=== PATIENT | female | born 1960 | race Caucasian/White ===

== ENCOUNTER 2017-08-21 15:03 | Emergency (ER) | payer OTHER, MEDICAID ==
--- NOTE | 2017-08-21 16:01 | EDM.PDOC ---
ED HPI GENERAL MEDICAL PROBLEM - General Chief Complaint: Chemical Exposure Stated Complaint: EXPOSED TO CARBON DIOXIDE Time Seen by Provider: 08/21/17 15:58 Source of Information: Reports: Patient, Family (spouse) History Limitations: Reports: No Limitations - History of Present Illness INITIAL COMMENTS - FREE TEXT/NARRATIVE: 56-year-old female presents the ED after being exposed to carbon monoxide in her home. History is that they moved into a mobile within the last week. It is supplied by natural gas. Going to supervisor seaming a natural gas close dryer last night smelt increased gas within the home. M.D. you came to check it out today and identified that there was a significant gas leak in the house and advised to remove herself from the home. She is sick with a severe headache dry burning eyes atypical chest pains as sharp and stabbing but a sense of dyspnea as well and she did have nausea and vomiting 1. She left the home proximally an hour ago. Her daughter also who is with her is quite lethargic and not quite himself either. He has not vomited. identified that there appears to be a crack in a plastic line that runs to the dryer that appears to be the source of the gas leak. Is being fixed at this time. [facility] is supposed to do a walk through and retest before she reenters the home. Also fire department was involved with current monoxide monitoring. Onset: Today (Patient states she's felt like she's had the flu since they moved into this mobile home a week ago. Much more symptomatic however this morning when the closed our was ran.) Onset Date: 08/21/17 Duration: Hour(s): Location: Reports: Other (Headache burning eyes shortness of breath nausea and vomiting) Severity: Moderate Improves with: Reports: None Worsens with: Reports: Other (Staying in the home) Context: Reports: Other (Suspect carbon monoxide exposure and toxicity.). Denies: Activity, Exercise ( made things worse.), Lifting, Sick Contact Associated Symptoms: Reports: Chest Pain, Headaches, Malaise, Nausea/Vomiting, Shortness of Breath. Denies: Confusion, Cough, cough w sputum, Diaphoresis, Fever/Chills, Loss of Appetite, Seizure, Syncope Treatments TAB MACHINE OPERATOR: Reports: Other (see below) (Nausea and vomiting 1. None.) Chest Pain Score (Numeric/FACES): 6 - Related Data Allergies Allergy/AdvReac Type Severity Reaction Status Date / Time Penicillins Allergy Seizure Verified 08/21/17 15:10 Past Medical History Cardiovascular History: Reports: High Cholesterol Musculoskeletal History: Reports: Back Pain, Chronic, RA, Other (See Below) Other Musculoskeletal History: bulging discs in her back Psychiatric History: Reports: Anxiety, Depression, PTSD Social & Family History - Tobacco Use Smoking Status *Q: Never Smoker - Recreational Drug Use Recreational Drug Use: Yes Drug Use in Last 12 Months: Yes Recreational Drug Type: Reports: Marijuana/Hashish - Living Situation & Occupation Living situation: Reports: Occupation: Unemployed ED ROS GENERAL - Review of Systems Review Of Systems: See Below Constitutional: Reports: Malaise, Weakness, Fatigue, Decreased Appetite. Denies : Fever, Chills HEENT: Reports: No Symptoms Respiratory: Reports: Shortness of Breath, Cough. Denies: Wheezing, Pleuritic Chest Pain, Sputum, Hemoptysis (Nonproductive), Other Cardiovascular: Reports: Chest Pain, Dyspnea on Exertion, Lightheadedness. Denies: Blood Pressure Problem, Claudication, Edema, Orthopnea, Palpitations, PND, Syncope Endocrine: Reports: Fatigue GI/Abdominal: Reports: Nausea, Vomiting (Vomited once this morning.). Denies: Abdominal Pain : Reports: No Symptoms Musculoskeletal: Reports: No Symptoms Skin: Reports: No Symptoms Neurological: Reports: No Symptoms Psychiatric: Reports: No Symptoms Hematologic/Lymphatic: Reports: No Symptoms Immunologic: Reports: No Symptoms ED EXAM, BURN/SMOKE INHALATION - Physical Exam Exam: See Below Exam Limited By: No Limitations General Appearance: Alert, WD/WN, Anxious, Moderate Distress, Other (Appears rather pallid.) Eye Exam: Bilateral Eye: Normal Inspection Mouth/Throat: No Symptoms Reported, Other Head: No Symptoms, Atraumatic Neck: No Symptoms. No: Trachea Midline, Lymphadenophy (R), Lymphadenopy (L) Respiratory: No Respiratory Distress, Lungs Clear, Normal Breath Sounds, Chest Non-Tender Cardiovascular: Normal Peripheral Pulses, Regular Rate, Rhythm, No Edema, No Gallop Peripheral Pulses: 0: Popliteal (L) GI/Abdominal: Normal Bowel Sounds, Soft, Non-Tender, No Organomegaly, No Abnormal Bruit, No Mass Extremities: Normal Inspection, Normal Range of Motion, Non-Tender, No Pedal Edema Neurological: Alert, Oriented, CN II-XII Intact, Normal Cognition, No Motor/ Sensory Deficits Psychiatric: Normal Affect, Anxious Skin Exam: Warm, Dry, Intact, Normal Color, Other (Has an eczematous rash anterior aspect of her tib-fib's. She's been scratching this excessively with multiple excoriations evident.) EKG INTERPRETATION EKG Date: 08/21/17 Time: 15:23 Rhythm: NSR Rate (Beats/Min): 76 [place]: Normal P-Wave: Present QRS: Other (Mildly decreased voltage limb leads) ST-T: Normal QT: Prolonged (Mildly prolonged) Course - Vital Signs Last Recorded V/S: Last Vital Signs Temp 35.8 C 08/21/17 15:10 Pulse 77 08/21/17 15:10 Resp 18 08/21/17 15:10 BP 137/76 08/21/17 15:10 Pulse Ox 98 08/21/17 15:10 - Orders/Labs/Meds Orders: Active Orders 24 hr Category Date Time Status EKG 12 Lead [EKG Documentation Completion] [RC] STAT Care 08/21/17 16:24 Active Chest 1V Frontal [CR] Stat Exams 08/21/17 15:58 Taken Labs: Laboratory Tests 08/21/17 08/21/17 08/21/17 Range/Units 15:27 16:18 16:18 WBC 4.38 (3.98-10.04) K/mm3 RBC 4.62 (3.98-5.22) M/mm3 Hgb 13.8 (11.2-15.7) gm/L Hct 41.4 (34.1-44.9) % MCV 89.6 (79.4-94.8) fl MCH 29.9 (25.6-32.2) pg MCHC 33.3 (32.2-35.5) g/dl RDW Std Deviation 41.2 (36.4-46.3) fL Plt Count 216 (182-369) K/mm3 MPV 9.4 (9.4-12.3) fl Neutrophils % (Manual) 60 (40-60) % Band Neutrophils % 0 (0-10) % Lymphocytes % (Manual) 28 (20-40) % Atypical Lymphs % 0 % Monocytes % (Manual) 8 (2-10) % Eosinophils % (Manual) 3 (0.7-5.8) % Basophils % (Manual) 1 (0.1-1.2) Platelet Estimate Adequate Plt Morphology Comment Normal RBC Morph Comment Normal Puncture Site Lt radial ABG pH 7.43 (7.35-7.45) ABG pCO2 40.2 (35.0-45.0) mmHg ABG pO2 309.0 H* (80.0-100.0) mmHg ABG HCO3 26.0 (22.0-26.0) meq/L ABG O2 Saturation 100.0 H (96.0-97.0) % ABG Base Excess 2.0 (-2-2.0) ABG Carboxyhemoglobin 1.1 (0.00-1.50) %THgb Audie Test Positive O2 Delivery Device Mask Oxygen Flow Rate 13.0 FiO2 0.00 L (21.00-100.00) % Sodium 142 (136-145) mEq/L Potassium 3.8 (3.5-5.1) mEq/L Chloride 107 (98-107) mEq/L Carbon Dioxide 27 (21-32) mEq/L Anion Gap 11.8 (5-15) BUN 15 (7-18) mg/dL Creatinine 0.7 (0.55-1.02) mg/dL Est Cr Clr Drug Dosing 86.01 mL/min Estimated GFR (MDRD) > 60 (>60) mL/min BUN/Creatinine Ratio 21.4 H (14-18) Glucose 108 H (74-106) mg/dL Calcium 8.5 (8.5-10.1) mg/dL Total Bilirubin 0.3 (0.2-1.0) mg/dL AST 18 (15-37) U/L ALT 32 (14-59) U/L Alkaline Phosphatase 71 (46-116) U/L Troponin I < 0.017 (0.00-0.056) ng/mL NT-Pro-B Natriuret Pep (0-125) pg/mL Total Protein 7.1 (6.4-8.2) g/dl Albumin 3.6 (3.4-5.0) g/dl Globulin 3.5 gm/dL Albumin/Globulin Ratio 1.0 (1-2) 08/21/17 Range/Units 16:53 WBC (3.98-10.04) K/mm3 RBC (3.98-5.22) M/mm3 Hgb (11.2-15.7) gm/L Hct (34.1-44.9) % MCV (79.4-94.8) fl MCH (25.6-32.2) pg MCHC (32.2-35.5) g/dl RDW Std Deviation (36.4-46.3) fL Plt Count (182-369) K/mm3 MPV (9.4-12.3) fl Neutrophils % (Manual) (40-60) % Band Neutrophils % (0-10) % Lymphocytes % (Manual) (20-40) % Atypical Lymphs % % Monocytes % (Manual) (2-10) % Eosinophils % (Manual) (0.7-5.8) % Basophils % (Manual) (0.1-1.2) Platelet Estimate Plt Morphology Comment RBC Morph Comment Puncture Site ABG pH (7.35-7.45) ABG pCO2 (35.0-45.0) mmHg ABG pO2 (80.0-100.0) mmHg ABG HCO3 (22.0-26.0) meq/L ABG O2 Saturation (96.0-97.0) % ABG Base Excess (-2-2.0) ABG Carboxyhemoglobin (0.00-1.50) %THgb Audie Test O2 Delivery Device Oxygen Flow Rate FiO2 (21.00-100.00) % Sodium (136-145) mEq/L Potassium (3.5-5.1) mEq/L Chloride (98-107) mEq/L Carbon Dioxide (21-32) mEq/L Anion Gap (5-15) BUN (7-18) mg/dL Creatinine (0.55-1.02) mg/dL Est Cr Clr Drug Dosing mL/min Estimated GFR (MDRD) (>60) mL/min BUN/Creatinine Ratio (14-18) Glucose (74-106) mg/dL Calcium (8.5-10.1) mg/dL Total Bilirubin (0.2-1.0) mg/dL AST (15-37) U/L ALT (14-59) U/L Alkaline Phosphatase (46-116) U/L Troponin I (0.00-0.056) ng/mL NT-Pro-B Natriuret Pep 38 (0-125) pg/mL Total Protein (6.4-8.2) g/dl Albumin (3.4-5.0) g/dl Globulin gm/dL Albumin/Globulin Ratio (1-2) - Radiology Interpretation Free Text/Narrative:: 56-year-old female presents the ED after potential exposure to carbon monoxide in her home due to a natural gas leak leading to a drier and evaporator operator that was placed in the home last night. She just moved into this mobile home a week ago. She's not felt well since she moved in. [place] like she had the flu. This morning she developed severe headache associated with nausea and vomiting and shortness of breath. M.DMeaghan you and fire department both checked and identified that there was a natural gas leak leading to high CO2 levels in the home. She has been out of the home for over an hour before coming to the ED. She is still symptomatic with headache nausea is better. She also has a small dog with her at all times and the dog was acting rather lethargic as well. - Re-Assessments/Exams Free Text/Narrative Re-Assessment/Exam: 08/21/17 16:11 initial ABGs done suggested possible venous line with a pH of 7.38 and a PCO2 of 44.5 and a PO2 of only 35. The carboxyhemoglobin was 1.2% on this sample. Repeat arterial sample was pH of 7.43 with a PCO2 of 40.2 and a PO2 of 309 course the patient has been on oxygen by 50 L for the last 15 minutes. O2 sats are 100% carboxyhemoglobin is 1.1% which is well within the normal range. Therefore going to leave this lady on the oxygen for half an hour or more to see if her headache goes away completely. A lot of her symptoms at this time or due to anxiety from exposure. However I don't have any doubt that she suffered CO2 exposure but has been away from the source for a period time and with oxygen here CO levels have returned to normal 08/21/17 16:53 Chest x-ray reveals opacity in the left lower lobe.has the appearance of previous radiation therapy tired the breast or lung. There is prominent vasculature in the inferior right lower lobe. Cardiac silhouette is upper limits of normal in size. I therefore added a BNP to her labs. The carboxyhemoglobin when repeated arterially shows a pH of 7.43 PCO2 is 40.2 with a PO2 of 309 on 15 L/m by mask. The carboxyhemoglobin was 1.1% well within the normal range. Therefore appears that she has washed out and been away from the CO2 source for a long enough period of time that she does not have evidence of carboxy hemoglobin anemia at this time. He was anxious to leave the department before the labs are back and I therefore did discharge her. I wrote out a prescription for betamethasone cream 0.5% to be applied to her lower extremities due to eczematous dermatitis and excessive excoriation. So-called nummular eczema. 08/21/17 17:33 WBC is 4.38 with 60% neutrophils and no bands. Hemoglobin is 13.8 with hematocrit of 41.4. Platelet count is 216,000. Chemistry shows a sodium of 142 potassium 3.8. Toward 17 bicarbonate is 27. Anion gap is 11.8. BUN is 15. Creatinine is 0.7. GFR is greater than 60. Glucose is 108. Calcium 8.5 bilirubin 0.3. Liver function normal. Report and I is less than 0.017. P&P was 38. Therefore labs are essentially normal. Her chest pains apparently were mostly anxiety related to the carbon monoxide exposure and having to leave her home. Departure - Departure Time of Disposition: 16:41 Disposition: Home, Self-Care 01 Condition: Fair Clinical Impression: Carbon monoxide poisoning Qualifiers: Encounter type: initial encounter Injury intent: accidental or unintentional Qualified Code(s): T58.91XA - Toxic effect of carbon monoxide from unspecified source, accidental (unintentional), initial encounter - Discharge Information Instructions: Carbon Monoxide Poisoning, [id number] Referrals: PCP,None [Primary Care Provider] - Forms: ED Department Discharge Additional Instructions: Evaluation in the emergency room today in regards to exposure to excessive amounts of carbon monoxide in your mobile home today. Apparently the cause has been identified and is being repaired. Carbon monoxide level in the ED is approaching the near normal values since you been away from the source and also on oxygen for a period of time in the ED. Expect to feel a little bit of fatigue and flulike for another 2-3 days headache usually stays away once you' re away from the source of the carbon monoxide. Of course you are not allowed to reenter your mobile home until cleared to do so by either the fire department or [facility]. No long-term effects from carbon monoxide exposure are anticipated. Of note heart tracing and chest x-ray were both within normal limits. - My Orders Last 24 Hours: My Active Orders 08/21/17 15:58 Chest 1V Frontal [CR] Stat 08/21/17 16:24 EKG 12 Lead [EKG Documentation Completion] [RC] STAT - Assessment/Plan Last 24 Hours: My Active Orders 08/21/17 15:58 Chest 1V Frontal [CR] Stat 08/21/17 16:24 EKG 12 Lead [EKG Documentation Completion] [RC] STAT
--- NOTE | 2017-08-22 08:50 | CR ---
Chest: Frontal view of the chest was obtained. Comparison: No previous study. Slight scarring is noted within the left upper lung. Lungs otherwise are clear with no acute densities seen within the lungs. Heart size and mediastinum are normal. Bony structures are grossly intact. Impression: 1. Nothing acute is seen on frontal chest x-ray. Diagnostic code #2
== END 2017-08-21 16:50 | disposition home or self-care (01) ==
LOC: JD.ED 15:03
DX: T58.91XA Toxic effect of carbon monoxide from unspecified source, accidental (unintentional), initial encounter (principal); R51 Headache; R11.2 Nausea with vomiting, unspecified; R06.02 Shortness of breath; Z88.0 Allergy status to penicillin; Y92.009 Unspecified place in unspecified non-institutional (private) residence as the place of occurrence of the external cause
CPT/HCPCS: 36415; 36600; 71045; 71045-26; 80053; 82375; 82803; 83880; 84484; 85025; 93005; 99284; 99284-25

== ENCOUNTER 2018-12-31 21:31 | Emergency (ER) | payer MEDICAID, MEDICARE ==
[2018-12-31] MEDS ORDERED: Sodium Chloride 0.9% 1,000 ML IV SCH (22:00)
[2018-12-31] MEDS ORDERED: HYDROmorphone 1 MG/ML Syringe IVPUSH ONE (22:01)
[2018-12-31] MEDS ORDERED: Metoclopramide 10 MG/2 ML SDV IVPUSH ONE (22:01)
[2018-12-31] MEDS ORDERED: Ketorolac 30 MG/ML SDV IVPUSH ONE (22:02)
--- NOTE | 2018-12-31 22:03 | EDM.PDOC ---
ED HPI GENERAL MEDICAL PROBLEM - General Chief Complaint: Abdominal Pain Stated Complaint: RIGHT SIDE PAIN Time Seen by Provider: 12/31/18 22:02 Source of Information: Reports: Patient, Family (spouse) History Limitations: Reports: No Limitations - History of Present Illness INITIAL COMMENTS - FREE TEXT/NARRATIVE: 58-year-old female presents to the ED with acute onset of severe right lower quadrant abdominal pain rating down to the vulva. Associated nausea without vomiting. Does not necessarily present with a feeling of need to void or defecate. Pain came on acutely about an hour ago and no position is comfortable. She is crying out in pain and writhing on the bed. No past history of renal lithiasis. He is constant but does have a mild colicky component. She doesn't feel anything in her upper back but feels pain from her right costal margin down to her vulva. Onset: Today Onset Date: 12/31/18 Onset Time: 20:40 Duration: Minutes: Location: Reports: Abdomen (Right hemiabdomen down to the groin.) Quality: Reports: Other Severity: Severe (Pain is constant and severe with a mild colicky component. No to 10) Improves with: Reports: None Worsens with: Reports: None Context: Reports: Other (Spontaneous occurrence while sitting on the couch.). Denies: Activity, Exercise (No position is comfortable.), Lifting, Sick Contact , Trauma Associated Symptoms: Reports: Nausea/Vomiting, Other (Has not recognized any symptoms of needing to void or to defecate.). 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 (see below) (None.) Right Lower Abdominal Pain Score (Numeric/FACES): 10 - Related Data Allergies Allergy/AdvReac Type Severity Reaction Status Date / Time Penicillins Allergy Seizure Verified 12/31/18 21:40 Home Meds: Home Meds Ondansetron [Zofran] 4 mg BUCCAL Q6H PRN #6 tab 12/31/18 [Rx] Sertraline HCl [Zoloft] 100 mg PO DAILY 12/31/18 [History] lamoTRIgine [Lamictal] 100 mg PO BID 12/31/18 [History] oxyCODONE HCl/Acetaminophen [Percocet 5-325 mg Tablet] 1 - 2 each PO Q4H PRN # 12 tablet 12/31/18 [Rx] Past Medical History Cardiovascular History: Reports: High Cholesterol Musculoskeletal History: Reports: Back Pain, Chronic, RA, Other (See Below) Other Musculoskeletal History: bulging discs in her back Psychiatric History: Reports: Anxiety, Depression, PTSD Social & Family History - Tobacco Use Smoking Status *Q: Never Smoker - Recreational Drug Use Recreational Drug Use: No - Living Situation & Occupation Living situation: Reports: Occupation: Unemployed ED ROS GENERAL - Review of Systems Review Of Systems: See Below Constitutional: Denies: Fever, Chills, Malaise, Weakness, Fatigue, Decreased Appetite, Weight Loss HEENT: Reports: No Symptoms Respiratory: Reports: No Symptoms Cardiovascular: Reports: No Symptoms, Other (Blood pressure is very high on initial assessment at 135/117 which is not likely accurate due to the pulse pressure being so close together.) GI/Abdominal: Reports: Abdominal Pain ( Patient is finding it very hard to hold still.), Nausea ( see history of present illness ). Denies: Vomiting : Reports: No Symptoms Musculoskeletal: Reports: No Symptoms Skin: Reports: No Symptoms Neurological: Reports: No Symptoms Psychiatric: Reports: Depression, Other Hematologic/Lymphatic: Reports: No Symptoms (Some problems with anxiety.) Immunologic: Reports: No Symptoms ED EXAM, GI/ABD - Physical Exam Exam: See Below Exam Limited By: No Limitations General Appearance: Alert, Severe Distress (Writhing all over the bed and screaming out in pain.) Eyes: Bilateral: Normal Appearance (No scleral icterus.) Throat/Mouth: Normal Inspection, Normal Lips, Normal Oropharynx Head: Atraumatic, Normocephalic Neck: Normal Inspection, Supple, Non-Tender, Full Range of Motion. No: Lymphadenopathy (L), Lymphadenopathy (R) Respiratory/Chest: Lungs Clear, Normal Breath Sounds, No Accessory Muscle Use, Chest Non-Tender, Respiratory Distress (Moderate tachypnea) Cardiovascular: Normal Peripheral Pulses, Regular Rate, Rhythm, No Edema, No Gallop, No Murmur, No Rub GI/Abdominal Exam: No Organomegaly (Mildly obese.), No Mass, Pelvis Stable, Guarding ( This is particularly noted in the right upper quadrant.), Tender ( Tender from the right costal margin down to the right groin with no rigidity or rebound but mild guarding.), Abnormal Bowel Sounds (Bowel sounds are fairly quiet sent.), Other Rectal (Female) Exam: Normal Exam Back Exam: Normal Inspection, Full Range of Motion. No: CVA Tenderness (L), CVA Tenderness (R) Extremities: Normal Inspection, Normal Range of Motion, Non-Tender Neurological: Alert, Oriented, CN II-XII Intact, Normal Cognition Psychiatric: Anxious, Tearful Skin Exam: Warm, Dry, Intact, Normal Color, No Rash Course - Vital Signs Last Recorded V/S: Last Vital Signs Temp 35.6 C 12/31/18 21:43 Pulse 96 12/31/18 21:43 Resp 16 12/31/18 21:43 BP 135/117 H 12/31/18 21:43 Pulse Ox 96 12/31/18 21:43 - Orders/Labs/Meds Orders: Active Orders 24 hr Category Date Time Status Abdomen Pelvis wo Cont [CT] Stat Exams 12/31/18 22:04 Taken Labs: Laboratory Tests 12/31/18 Range/Units 23:30 Urine Color Missy H (Yellow) Urine Appearance Cloudy H (Clear) Urine pH 6.0 (5.0-8.0) Ur Specific [place] > or = 1.030 (1.005-1.030) Urine Protein 1+ H (Negative) Urine Glucose (UA) Negative (Negative) Urine Ketones 1+ H (Negative) Urine Occult Blood 3+ H (Negative) Urine Nitrite Negative (Negative) Urine Bilirubin 1+ H (Negative) Urine Urobilinogen 0.2 (0.2-1.0) Ur Leukocyte Esterase Trace H (Negative) Urine RBC 75-100 H (0-5) /hpf Urine WBC 5-10 H (0-5) /hpf Ur Squamous Epith Cells 0-5 (0-5) /hpf Urine Bacteria Few (FEW) /hpf Hyaline Casts 0-5 (0-5) /lpf Urine Mucus Moderate H (FEW) /hpf Meds: Medications Discontinued Medications Generic Name Dose Route Start Last Admin Trade Name Freq PRN Reason Stop Dose Admin Hydromorphone HCl 1 mg 12/31/18 22:01 12/31/18 22:12 Dilaudid IVPUSH 12/31/18 22:02 1 mg ONETIME ONE Administration Hydromorphone HCl 0.5 mg 12/31/18 23:49 01/01/19 00:17 Dilaudid IVPUSH 12/31/18 23:50 0.5 mg ONETIME ONE Administration Sodium Chloride 1,000 mls @ 150 mls/hr 12/31/18 22:00 12/31/18 22:00 Normal Saline IV 150 mls/hr ASDIRECTED DERIC Administration Ketorolac Tromethamine 30 mg 12/31/18 22:02 12/31/18 22:10 Toradol IVPUSH 12/31/18 22:03 30 mg ONETIME ONE Administration Metoclopramide HCl 10 mg 12/31/18 22:01 12/31/18 22:12 Reglan IVPUSH 12/31/18 22:02 10 mg ONETIME ONE Administration - Radiology Interpretation Free Text/Narrative:: 58-year-old female presents to the ED with acute onset of severe right reta- abdominal pain. Pain seems to start at the right costal margin radial way down to her right groin and vulva. She is associated nausea without vomiting. Pain started suddenly about an hour prior to coming to the ED. Any pain noted in her back or flank. Associated nausea without vomiting. She does not have a sensation of need to void or defecate that she is aware of. No position is comfortable. She is crying out in pain and is very anxious. Clinically she is showing signs symptoms of acute renal colic. Landed IV normal saline at 150 mils per hour. Will be given Dilaudid 1 mg IV with Reglan 10 mg IV and Toradol 30 mg IV. Plan will be to collect a urine if one becomes available. CT the abdomen will be done per renal protocol. - Re-Assessments/Exams Free Text/Narrative Re-Assessment/Exam: 12/31/18 23:11 Pain is much improved after IV analgesia. CT of the abdomen done per renal protocol identifies a contracted gallbladder with multiple stones appreciated. The findings may represent acute or chronic cholecystitis. Pancreas is normal spleen is normal adrenals appear to be normal with no mass. There is hydronephrosis of the right kidney as well as hydroureter secondary to a 3 mm stone in the proximal right ureter. Stomach and bowel appear to be normal with no mucosal thickening or obstruction. Normal appendix in the right lower quadrant. Fibroid uterus with a 2.7 cm fibroid extending off the posterior body of the uterus. Intra-. Peritoneal space appears normal with no free air and no significant fluid collections. No enlarged lymph nodes appreciated. Of note no stones were identified within either renal parenchyma.Topic asked 12/31/18 23:50 Patient is much improved in terms of her pain but she still rates it as a 6 out of 10. Doesn't quite appear to be in that degree of discomfort. Patient advised about multiple gallstones and that I wouldn't have her seek out surgical management of gallstones stones. She often gets a lot of epigastric pressure discomfort which may or may not be related to the gallbladder. Sounds like she has free gastroesophageal reflux and likely a stricture of the distal esophagus by history. Going to give her 0.5 mg of Dilaudid IV for further pain relief at this time. We'll discharge her on Percocet tabs 5/3/25 milligrams one or 2 every 4-6 hours no safe for pain relief. Zofran 4 mg under the tongue every 4-6 hours and is here for nausea or vomiting relief. A urinary strainer to try to identify that she has passed the stone. Follow-up with personal physician if stone is not noted to pass within the next 2 weeks. Departure - Departure Time of Disposition: 23:53 Disposition: Home, Self-Care 01 Condition: Fair Clinical Impression: Renal colic on right side - Discharge Information *PRESCRIPTION DRUG MONITORING PROGRAM REVIEWED*: No *COPY OF PRESCRIPTION DRUG MONITORING REPORT IN PATIENT ISABELA: No Prescriptions: Ondansetron [Zofran] 4 mg BUCCAL Q6H PRN #6 tab PRN Reason: nausea or vomiting oxyCODONE HCl/Acetaminophen [Percocet 5-325 mg Tablet] 1 - 2 each PO Q4H PRN # 12 tablet PRN Reason: pain relief. Instructions: Renal Colic, [id number] Referrals: Shea Jane MD [Primary Care Provider] - Forms: ED Department Discharge Additional Instructions: Evaluation the emergency room today in regards to development of sudden onset of severe right upper quadrant abdominal pain rating down towards the genital area. Associated nausea without vomiting. History was compatible with a kidney stone and this was confirmed on CT exam. CT identifies a 3 mm stone in the upper third of the right ureter. This is causing mild obstruction of the right kidney. The stone is likely to move downwards towards the bladder over the next couple of days. It may take a week to 10 days before the stone is passed into the bladder. Treatment is to stay as active as possible and drink plenty of fluids. Strain the urine so that you know you actually passed the stone. It would not necessarily have to start straining until you had significant amount of pain again as the stone has about 9 inches to travel towards the bladder. Stone is in the bladder he will have no further problems passing the stone or pain. No other stones are identified within either kidney. If pain returns take Zofran 4 mg tablet under the tongue for nausea relief so that the pain medication will stay down. Take 2 tablets of Percocet 5/325 mg tablets for acute pain relief. If you vomit up the tablets or pain is not controlled then you may need to return to the ED. CT also identified multiple gallstones in your gallbladder and I would suggest follow-up with your primary care physician to seek surgical consultation about having her gallbladder removed. - My Orders Last 24 Hours: My Active Orders 12/31/18 22:04 Abdomen Pelvis wo Cont [CT] Stat - Assessment/Plan Last 24 Hours: My Active Orders 12/31/18 22:04 Abdomen Pelvis wo Cont [CT] Stat
[2018-12-31] MEDS ORDERED: HYDROmorphone 0.5 MG/0.5 ML Syringe IVPUSH ONE (23:49)
--- NOTE | 2019-01-01 08:30 | CT ---
CT abdomen and pelvis Technique: Multiple axial sections were obtained from above the dome of the diaphragm inferiorly through the pubic symphysis. Intravenous and oral contrast not utilized. Study has been performed as a ureteral stone protocol. Findings: Right kidney shows slightly dilated collecting system. This is due to a proximal partially obstructing 2-3 mm stone within the right ureter. No other ureteral calcifications are seen. No renal calculi are seen. Numerous gallstones are seen within the gallbladder. Gallbladder does appear somewhat contracted. Small portion of the visualized lung bases showed nothing acute. Small low-density lesion is noted within the left lobe of the liver which is felt to most likely represent a cyst measuring 6 mm. No additional abnormality is appreciated within the liver. Spleen appears within normal limits. Adrenal glands show no nodule. Pancreas is within normal limits. Aorta shows no aneurysm. No retroperitoneal adenopathy or mesenteric abnormalities are seen. Appendix is seen which is normal in size. Subserosal uterine fibroid is seen posteriorly off the left side of the uterus measuring 2.8 cm. No additional pelvic abnormality is seen. No free fluid or inflammatory change is seen within the abdomen or pelvis. Bone window settings were reviewed which show mild degenerative change scattered throughout spine. Impression: 1. Slightly prominent collecting system of the right kidney which is caused by a mildly obstructing proximal right ureteral stone measuring 2-3 mm. 2. Contracted gallbladder around multiple small calcified gallstones. 3. Other incidental findings as noted above. Diagnostic code #3 I agree with preliminary report from [facility], finalized on 12/31/18, 11:53 PM Central Time
== END 2019-01-01 00:24 | disposition home or self-care (01) ==
LOC: JD.ED 21:31
DX: N23 Unspecified renal colic (principal); F41.9 Anxiety disorder, unspecified; F32.9 Major depressive disorder, single episode, unspecified; E78.00 Pure hypercholesterolemia, unspecified; F43.10 Post-traumatic stress disorder, unspecified; Z79.899 Other long term (current) drug therapy; Z88.0 Allergy status to penicillin
CPT/HCPCS: 74176; 81001; 96361; 96374; 96375; 96376; 99284; J1170; J1885; J2765; J7040

== ENCOUNTER 2019-01-05 19:00 | Emergency (ER) | payer MEDICARE ==
[2019-01-05] MEDS ORDERED: Ketorolac 30 MG/ML SDV IVPUSH ONE (19:35)
[2019-01-05] MEDS ORDERED: Sodium Chloride 0.9% 1,000 ML IV ONE (19:35)
[2019-01-05] MEDS ORDERED: Sodium Chloride 0.9% 10 ML Syringe FLUSH PRN (19:35)
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
== END 2019-01-05 22:06 | disposition home or self-care (01) ==
LOC: JD.ED 19:00
DX: N23 Unspecified renal colic (principal); F41.9 Anxiety disorder, unspecified; F32.9 Major depressive disorder, single episode, unspecified; Z79.899 Other long term (current) drug therapy; Z88.0 Allergy status to penicillin
CPT/HCPCS: 36415; 80053; 81001; 85025; 96361; 96374; 99284; J1885; J7040